=== PATIENT | male | born 1960 | race Caucasian/White ===

== ENCOUNTER 2022-01-23 13:36 | Outpatient (CLI) | payer OTHER, SELFPAY ==
--- NOTE | ~2022-01-23 | CT_ITS ---
EXAMINATION: CT abdomen pelvis w con DATE: 01/23/2022 14:14 INDICATION: Lower abdominal and back pain for 2 weeks TECHNIQUE: Computed tomography (CT) of the abdomen and pelvis was performed with 100 CC Omnipaque 350 intravenous contrast. Automated exposure control and iterative reconstruction technique were employe d. Exam dose: 1223.36 mGy-cm total exam DLP. COMPARISON: None. FINDINGS: Calcified right lower lobe pulmonary granuloma and calcified right hilar nodes consistent w ith old pulmonary granulomatous disease. There are calcified hepatic and particularly splenic granulo mas as well. Minimal dependent lower lobe atelectasis. Normal heart size. No pericardial or pleural effusion. Small sliding hiatal hernia. There is hepatic steatosis. No hepatic, splenic, pancreatic, adrenal or renal space-occupying mass le fanny. The gallbladder is present. No bile duct or pancreatic duct dilatation. No pancreatic calcification. No ureteral calculus or hydroureteronephrosis. There is atherosclerotic calcification but normal caliber of the abdominal aorta. No intraperitoneal or retroperitoneal or pelvic mass lesion or adenopathy or ascites is detected. The prostate gland and urinary bladder are unremarkable. Diverticulosis of the left colon; no CT evidence of diverticulitis. No bowel obstruction, bowel wall thickening, pneumatosis or intraperitoneal free air. 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 Moderate multilevel degenerative disc disease of the lumbar spine. Diffuse idiopathic skeletal hypero stosis of the thoracic spine. No suspicious osteolytic or osteoblastic lesions are noted. IMPRESSION: No urinary tract calculus or hydroureteronephrosis Diverticulosis of the left colon; no CT evidence of diverticulitis Small sliding hiatal hernia Hepatic steatosis Bilateral L5 pars interarticularis defects with grade 1 anterolisthesis at L5-S1 Reviewed, dictated and finalized at [facility]. Reviewed, dictated and finalized at [facility]. IMPRESSION: No urinary tract calculus or hydroureteronephrosis Diverticulosis of the left colon; no CT evidence of diverticulitis Small sliding hiatal hernia Hepatic steatosis Bilateral L5 pars interarticularis defects with grade 1 anterolisthesis at L5-S 1
[2022-01-23 14:07] LABS: Estimated Glomerular Filt Rate > 60
== END 2022-01-23 13:37 | disposition home or self-care (01) ==
PROVIDERS: PCP Family Medicine; Visit Provider Family Medicine
DX: N20.0 Calculus of kidney (principal); R10.9 Unspecified abdominal pain; K57.90 Diverticulosis of intestine, part unspecified, without perforation or abscess without bleeding; K44.9 Diaphragmatic hernia without obstruction or gangrene; K76.0 Fatty (change of) liver, not elsewhere classified; M53.86 Other specified dorsopathies, lumbar region; M43.17 Spondylolisthesis, lumbosacral region
CPT/HCPCS: 74177; Q9967

== ENCOUNTER 2022-04-21 00:33 | Day surgery (SDC) | payer OTHER, SELFPAY ==
[2022-04-08 14:09] VITALS: BMI 33.5
[2022-04-21 09:58] VITALS: BP 159/88; PULSE 73; RESP 16; TEMP 36.3; O2SAT 98; BMI 33.5
[2022-04-21] MEDS: LACTATED RINGERS 1,000 ML 150 ML IV CONT (10:07)
--- NOTE | 2022-04-21 10:34 | PM.HPGS ---
History of Present Illness History of Present Illness Consent: Risks, benefits, and alternatives have been discussed and questions answered. Patient agrees to proceed with procedure. Chief complaint: neoplasm screening,hxcolon polyps,fam hx colon ca Narrative: Adam Cosme is a 61 year old male Presents for colonoscopy. Patient has a family history of colon cancer in his mother. He has a prior history of colon polyps by colonoscopy performed elsewhere. Recently has had suprapubic pain. This is gradually resolved. At 1 point he was told he had irritable bowel syndrome. He was treated for a UTI earlier this summer. Patient presents today for colonoscopy because of these reasons. Review of Systems Review of Systems: Review of systems noncontributory. 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 Gender identity (if verbalized by the patient): Male Meds Home Medications and Allergies Home Medications Medication Instructions Recorded Confirmed Type celecoxib 200 mg capsule (Celebrex) 200 mg PO DAILY #90 caps 03/09/22 04/21/22 Rx glucosamine sulfate dipotassium Cl 1 cap PO DAILY 04/08/22 04/21/22 History 500 mg-chondroitin 400 mg capsule (Glucosamine Sulfate 2 KCL-Chondroitin) calcium polycarbophil 625 mg 1,250 mg PO BID #120 tabs 04/09/22 04/21/22 Rx tablet (FiberCon) Allergies Allergy/AdvReac Type Severity Reaction Status Date / Time No Known Allergies Allergy Verified 04/21/22 09:57 Vital Signs Vital Signs - 24 hr 04/21/22 09:58 Temperature 97.3 F L Pulse Rate 73 Respiratory Rate 16 Blood Pressure 159/88 H Pulse Oximetry 98 Oxygen Delivery Room Air Exam Narrative: Physical exam reveals patient to be alert. Vital signs stable. HEENT exam is unremarkable. Patient is anicteric. Lungs are clear to auscultation and percussion. Heart is without murmur or extra sounds. Abdomen bowel sounds are present soft nontender with no organomegaly. Digital external rectal exam is normal. Assessment and Plan Assessment and plan (1) History of colon polyps: Code(s): Z86.010 - Personal history of colonic polyps Status: Acute Assessment and Plan: Patient has a distant history of colon polyps. Plan for screening colonoscopy now. consider this at 5 year intervals in the future. (2) Family history of colon cancer in mother: Code(s): Z80.0 - Family history of malignant neoplasm of digestive organs Status: Acute Assessment and Plan: Patient's mother had colon cancer. Plan screening colonoscopy at 5 year intervals in the future. (3) Suprapubic pain: Code(s): R10.2 - Pelvic and perineal pain Status: Acute Assessment and Plan: Patient with suprapubic pain that is now resolved. Likely related to recent UTI that is resolved. High-fiber diet is suggested because of history of diverticulosis. No recent evidence for diverticulitis.
--- NOTE | 2022-04-21 10:37 | P.PNAN_ITS ---
Anes - Initial Pre Proc Eval Procedure: Operation Date: 04/21/22 11:00 Proposed Procedures p Screening Colonoscopy - Cayetano Hinson MD Date/Time: 04/21/22 10:37 Surgeon: Cayetano Hinson MD Pre Op Diagnosis: neoplasm screening,hxcolon polyps,fam hx colon ca Patient Data Age: 61 Gender: M Height: 1.78 m Weight: 105.8 kg Last Vital Signs Temp 36.3 C L 04/21/22 09:58 Pulse 73 04/21/22 09:58 Resp 16 04/21/22 09:58 BP 159/88 H 04/21/22 09:58 Pulse Ox 98 04/21/22 09:58 O2 Del Method Room Air 04/21/22 09:58 Allergies Allergy/AdvReac Type Severity Reaction Status Date / Time No Known Allergies Allergy Verified 04/21/22 09:57 Home Medications Medication Instructions Recorded Confirmed Type celecoxib 200 mg capsule (Celebrex) 200 mg PO DAILY #90 caps 03/09/22 04/21/22 Rx glucosamine sulfate dipotassium Cl 1 cap PO DAILY 04/08/22 04/21/22 History 500 mg-chondroitin 400 mg capsule (Glucosamine Sulfate 2 KCL-Chondroitin) calcium polycarbophil 625 mg 1,250 mg PO BID #120 tabs 04/09/22 04/21/22 Rx tablet (FiberCon) Patient hx anesthesia problems: none Family hx anesthesia problems: none Results Review: All pre-operative results and documents have been reviewed as part of the pre- operative evaluation. 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 Informed Consent: The patient's anesthetic plan and its attendant risks and benefits were discussed with the patient/family/POA. Questions were solicited and answers provided to the satisfaction of the patient/family/POA.
[2022-04-21] MEDS: SIMETHICONE ORAL SUSPENSION 20 MG/0.3 ML 30 ML BOTTLE 0.6 ML IRRIGATION (11:18)
[2022-04-21 11:27] VITALS: BP 136/86; PULSE 79; RESP 20; O2SAT 98
[2022-04-21 11:37] VITALS: BP 132/83; PULSE 66; RESP 17; O2SAT 96
[2022-04-21 11:47] VITALS: BP 134/91; PULSE 66; RESP 26; O2SAT 98
== END 2022-04-21 11:57 | disposition home or self-care (01) ==
PROVIDERS: PCP Family Medicine; Visit Provider Internal Medicine Gastroenterology
PROC: 0DJD8ZZ Inspection of Lower Intestinal Tract, Via Natural or Artificial Opening Endoscopic (ICD-10-PCS; CPT 45378; principal; 2022-04-21 11:00)
DX: Z12.11 Encounter for screening for malignant neoplasm of colon (principal); K63.5 Polyp of colon; K57.30 Diverticulosis of large intestine without perforation or abscess without bleeding; K64.8 Other hemorrhoids; Z80.0 Family history of malignant neoplasm of digestive organs; E66.9 Obesity, unspecified; Z68.33 Body mass index [BMI] 33.0-33.9, adult
CPT/HCPCS: 45380; 88305; J2704; J7120

== ENCOUNTER 2024-01-17 08:50 | Outpatient (CLI) | payer OTHER, SELFPAY ==
--- NOTE | ~2024-01-17 | CT_ITS ---
CT abdomen pelvis wo con Ordering provider: Ml Cross APRN History: 63 years Male with . R10.9 - Unspecified abdominal pain . Comparison: January 23, 2022 Technique: CT abdomen and pelvis without IV and without oral contrast. Automated exposure control and iterative reconstruction technique were employed. The dose-length product was 1049.51 mGy-cm. Findings: VISUALIZED LOWER CHEST: Normal. Right hilar lymph node calcification. Calcified granuloma in the righ t lower lobe area. UPPER ABDOMINAL ORGANS: Liver: Normal. Gallbladder: Normal. Spleen: Benign calcifications. Stomach/duodenum: Normal. Pancreas: Normal. Adrenals: Normal. Kidneys: Normal. PELVIC ORGANS: The bladder is slightly underfilled. BOWEL AND MESENTERY: Colon: no evidence of diverticulitis. No evidence of appendicitis.. Small Bowel: Normal. No obstruction. Peritoneum/mesentery: No free air or free fluid. No mesenteric lymphadenopathy. RETROPERITONEUM: Mild atheromatous disease of the abdominal aorta. No retroperitoneal lymphadenopat hy. MUSCULOSKELETAL: Superficial soft tissues: The superficial soft tissues are normal. Bones: Age appropriate degenerative changes of the spine. Minimal anterolisthesis at the level of L5- S1. IMPRESSION: 1. No evidence of appendicitis, diverticulitis or intestinal obstruction. 2. No definite kidney stones. Reviewed, dictated and finalized at location [facility].
== END 2024-01-17 08:51 | disposition home or self-care (01) ==
LOC: MICIMG 08:51
PROVIDERS: PCP Nurse Practitioner Family; Visit Provider Nurse Practitioner Family
DX: R10.9 Unspecified abdominal pain (principal)
CPT/HCPCS: 74176

== ENCOUNTER 2024-02-09 09:15 | Outpatient (RCR) | payer OTHER, SELFPAY ==
--- NOTE | 2024-01-21 11:05 | PTOPEVAL1 ---
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 However this recent pain has progressively gotten worse and impacts his daily mobility. Initial getting up from bed or chair in the morning is worse. Pain was more debilitating last week, seen a chiropractor and received pelvis adjustment and reports some relief from that. Used Intermittent ice-heat compress and this usually feels good. Started pain medication and muscle relaxants 2-3 days ago. Standing and twisting back increases pain; Pt wants to find out if the pain is muscular or bone and wants pain relief to be able to stand and walk better/normal. Reported Pain Level Pain Score 0: Self Report Additional Pain Score Comments noted guarding with transfer transitions and movement. Assessment PT Clinical Summary Pt is a 63 male patient who presents to therapy with c/o pain to low back muscles which impact his ability to perform ADLs and IADLs. Demos antalgic gait pattern, impaired postural alignment, gait impairments, increased muscle guarding throughout spine and BLEs, deficits with mobility. CT scan revealed degenerative changes of the spine and Minimal anterolisthesis at the level of L5-S1. He would benefit from skilled PT to reduce pain, address deficits, improve strength and flexibility and improve standing and walking tolerance. Plan of Care Interventions Electrical Stimulation,Gait Training,Hot Pack/Cold Pack,Manual Therapy,Mechanical Traction,Neuro Re- education,Patient/Caregiver Education,Therapeutic Activities,Therapeutic Exercise,Ultrasound Other Interventions IASTM, PT Services Indicated Yes Treatment Frequency and 2x/wk x 20 visits Duration These treatments will address the objective and functional deficits as defined above. The patient will be advanced safely and appropriately in order for the patient to progress towards his/her prior level of function. Additional exercises will be introduced and as well as a comprehensive home exercise program upon discharge, if needed, ?to ensure carryover of functional gains achieved in the clinic. This treatment plan has been reviewed and agreement upon by the patient.
--- NOTE | 2024-03-09 17:52 | PTOPDC ---
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 However this recent pain has progressively gotten worse and impacts his daily mobility. Initial getting up from bed or chair in the morning is worse. Pain was more debilitating last week, seen a chiropractor and received pelvis adjustment and reports some relief from that. Used Intermittent ice-heat compress and this usually feels good. Started pain medication and muscle relaxants 2-3 days ago. Standing and twisting back increases pain; Pt wants to find out if the pain is muscular or bone and wants pain relief to be able to stand and walk better/normal. Assessment PT Clinical Summary Pt attended 7 visits including evaluation for his low back pain. He cancelled 2 of booked appointments and called the office to be discharged from therapy, states he wanted to get an MRI and wants to stop therapy at this time regardless of the imaging result. Patient discharged at this time. Plan of Care PT Services Indicated No
== END 2024-03-10 09:24 | disposition home or self-care (01) ==
LOC: ANHHIPT 09:15
PROVIDERS: PCP Nurse Practitioner Family; Visit Provider Nurse Practitioner Family
DX: M47.816 Spondylosis without myelopathy or radiculopathy, lumbar region (principal); M54.6 Pain in thoracic spine; R26.2 Difficulty in walking, not elsewhere classified; R26.9 Unspecified abnormalities of gait and mobility; R53.1 Weakness
CPT/HCPCS: 97012; 97014; 97035; 97110; 97112; 97140; 97161; G0283

== ENCOUNTER 2024-03-03 07:04 | Outpatient (CLI) | payer OTHER, SELFPAY ==
--- NOTE | ~2024-03-03 | MR_ITS ---
EXAMINATION: MR lumbar spine wo con DATE: 03/03/2024 07:37 INDICATION: Radiculopathy, lumbar region. TECHNIQUE: Magnetic resonance imaging (MRI) of the lumbar spine was performed without intravenous con trast. Sequences included sagittal T2-weighted FSE, sagittal T2-weighted FS FSE, sagittal T1-weighted FSE, and axial T2-weighted FSE. COMPARISON: Lumbar spine radiographs 02/08/2024 FINDINGS: There is 3 degrees dextrocurvature of lumbar spine. There are chronic bilateral L5 pars def ects. There is 8 mm anterolisthesis of L5 on S1. There is 3 mm retrolisthesis of L1 on L2 and L2 on L 3. There is mild chronic anterior wedging of T12 and L1 vertebral bodies. There is moderately decreas ed disc height at L1-L2, mildly decreased disc height from L2-L3 through L4-L5, and moderately decrea sed disc height at L5-S1. The distal spinal cord signal intensity is normal. The conus medullaris is at L1. The following disc levels are specifically discussed: L1-L2: The disc is bulging. There is mild bilateral facet joint osteoarthritis. There is mild bilater al neural foraminal stenosis. There is mild central canal stenosis. L2-L3: The disc is bulging. There is moderate right and severe left facet joint osteoarthritis. There is mild bilateral neural foraminal stenosis. There is mild central canal stenosis. L3-L4: The disc is bulging and has an annular fissure. There is severe right and moderate left facet joint osteoarthritis. There is moderate bilateral neural foraminal stenosis. There is moderate centra l canal stenosis. L4-L5: The disc is bulging and has an annular fissure. There is moderate right and severe left facet joint osteoarthritis. There is moderate bilateral neural foraminal stenosis. There is mild central ca nal stenosis. L5-S1: The disc is bulging. There is moderate bilateral facet joint osteoarthritis. There is mild rig ht and moderate left neural foraminal stenosis. There is mild central canal stenosis. IMPRESSION: 1. Moderate lumbar spondylosis. 2. Chronic bilateral L5 pars defects with grade 2 anterolisthesis of L5 on S1. Reviewed, dictated and finalized at location [facility].
== END 2024-03-03 07:05 | disposition home or self-care (01) ==
PROVIDERS: PCP Nurse Practitioner Family; Visit Provider Nurse Practitioner Family
DX: M47.26 Other spondylosis with radiculopathy, lumbar region (principal)
CPT/HCPCS: 72148

== ENCOUNTER 2024-09-06 07:44 | Outpatient (CLI) | payer OTHER, SELFPAY ==
--- NOTE | ~2024-09-06 | MR_ITS ---
EXAMINATION: MR shoulder RT wo con DATE: 09/06/2024 08:12 INDICATION: Right shoulder pain TECHNIQUE: Magnetic resonance imaging (MRI) of the right shoulder was performed without intravenous c ontrast. Sequences included axial PD-weighted FS FSE, coronal oblique PD-weighted FS FSE, coronal obl ique T2-weighted FS FSE, sagittal PD-weighted FS FSE, and sagittal T1-weighted SE. COMPARISON: None. FINDINGS: Coracoacromial arch: The acromion undersurface is convex in morphology (type IV). The coracoacromial ligament is normal. Severe acromioclavicular osteoarthritis. Rotator cuff: Mild supraspinatus and infraspinatus tendinopathy. There is an articular sided tear extending along t he superior and anterior middle facet footplates of the supraspinatus tendon and conjoined portion of the supraspinatus and infraspinatus tendons. The tear involves up to two thirds of the tendon thickn ess. The teres minor tendon is normal. Mild subscapularis tendinopathy without tear. Normal rotator c uff muscle bulk and signal. Biceps tendon, glenoid labrum and glenohumeral cartilage: Long head of the biceps tendon is normal. Diffuse tearing of the glenoid labrum. There is deep chondr al ulceration with underlying cortical irregularity and subarticular edema-like signal change at the caudal third of the glenoid. Additional deep chondral ulceration without degenerative subchondral abigail nges at the superomedial aspect of the humeral head. Less severe partial thickness cartilage loss wit h chondral surface regularity along the medial and inferomedial aspect of the humeral head. Small mar ginal osteophytes along the humeral head and glenoid. Fluid: Physiologic amount of fluid in the glenohumeral joint and biceps tendon sheath. No loose osteochondr al bodies. Mild increased fluid signal along the subacromial/subdeltoid bursa consistent with minimal bursitis. Bones: No fracture or pathologic marrow replacing process. IMPRESSION: 1. Mild rotator cuff tendinopathy with moderate severity articular sided tear extending 2 cm AP along the footplate of the supraspinatus tendon and conjoined portion of the supraspinatus and infraspinat us tendons. 2. 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 3. Severe acromioclavicular osteoarthritis with minimal underlying subacromial subdeltoid bursitis. Reviewed, dictated and finalized at location [facility]. IMPRESSION: 1. Mild rotator cuff tendinopathy with moderate severity articular sided tear e xtending 2 cm AP along the footplate of the supraspinatus tendon and conjoined portion of the supraspinatus and infraspinatus tendons. 2. Moderate right humeral osteoarthritis with high-grade chondromalacia along t he inferior glenoid and with associated diffuse labral tear. 3. Severe acromioclavicular osteoarthritis with minimal underlying subacromial subdeltoid bursitis.
== END 2024-09-06 07:45 | disposition home or self-care (01) ==
LOC: MICIMG 07:45
PROVIDERS: PCP Nurse Practitioner Family; Visit Provider Nurse Practitioner Family
DX: M19.011 Primary osteoarthritis, right shoulder (principal)
CPT/HCPCS: 73221